=== PATIENT | male | born 1960 | race American Indian/Alaskan Native ===

== ENCOUNTER 2020-12-27 13:12 | Emergency (ER) | payer OTHER ==
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
--- NOTE | 2020-12-27 18:02 | Cat Scan Report ---
CLINICAL DATA: right hip pain, poss fx on xray, no recent injury TECHNICAL DATA: CT imaging of pelvis without IV nonionic contrast infusion was performed. Imaging was presented in th e axial, coronal and sagittal imaging planes.All CT scans at this location are performed using CT dos e reduction for ALARA by means of automated exposure control. FINDINGS Soft tissues are normal. Bony structures are intact. Severe degenerative changes of the right hip not ed, characterized by sclerosis of articular surface, subchondral cyst formation and loss of the omid l articular space. Mild degenerative changes left hip characterized by loss of normal articular space Portion of the gastrointestinal tract that is imaged and is within normal limits IMPRESSION: No acute traumatic abnormality Signer Name: Anurag Paredes MD Signed: 12/27/2020 5:57 PM Workstation Name: [id number]
[2020-12-27 19:31] VITALS: BP 97/68
== END 2020-12-27 21:10 | disposition home or self-care (01) ==
LOC: ED 13:12
DX: M16.0 Bilateral primary osteoarthritis of hip (principal); F17.200 Nicotine dependence, unspecified, uncomplicated; F12.10 Cannabis abuse, uncomplicated; Z79.899 Other long term (current) drug therapy
CPT/HCPCS: 72192